=== PATIENT | male | born 1975 | race African-American/Black ===

== ENCOUNTER 2018-11-26 19:16 | Emergency (ER) | payer OTHER ==
[~2018-11-26] VITALS: Ht 180.3 cm; Wt 90.7 kg
[2018-11-26 19:21] VITALS: BP 149/80
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
[2018-11-26 20:50] VITALS: BP 133/66
[2018-11-26 21:00] VITALS: BP 133/66
== END 2018-11-26 20:52 | disposition home or self-care (01) ==
LOC: ER 19:16
DX: S16.1XXA Strain of muscle, fascia and tendon at neck level, initial encounter (principal); S09.90XA Unspecified injury of head, initial encounter; V89.2XXA Person injured in unspecified motor-vehicle accident, traffic, initial encounter; Y93.89 Activity, other specified; Y92.410 Unspecified street and highway as the place of occurrence of the external cause; Y99.8 Other external cause status
CPT/HCPCS: 70450; 72040; 99284